=== PATIENT | male | born 1940 | race Two or more races ===

== ENCOUNTER 2017-01-18 04:07 | Day surgery (SDC) | payer MEDICARE ==
[2017-01-12 09:33] LABS: BASOPHILS 0.4 %; BASOPHILS ABSOLUTE 0.02 10/3/uL (0.0-0.16); EOSINOPHILS 4.2 %; EOSINOPHILS ABSOLUTE 0.24 10/3/uL (0.0-0.53); HEMOGLOBIN 12.3 g/dL (13.6-17.8); IMMATURE GRANULOCYTES 0.2 %; IMMATURE GRANULOCYTES ABSOLUTE 0.01 10/3/uL (0.0-0.11); LYMPHOCYTES 32.8 %; LYMPHOCYTES ABSOLUTE 1.87 10/3/uL (0.67-4.30); MEAN CORPUS HGB CONC 33.5 g/dL (32.0-36.0); MEAN CORPUSCULAR HEMOGLOB 29.6 pg (26.0-34.0); MEAN PLATELET VOLUME 10.3 fL (9.2-13.0); MONOCYTES 14.9 %; MONOCYTES ABSOLUTE 0.85 10/3/uL (0.21-1.20); NEUTROPHILS 47.5 %; NEUTROPHILS ABSOLUTE 2.71 10/3/uL (2.02-8.40); PLATELET COUNT 178 10/3/uL (150-400); RBC DISTRIBUTION WIDTH 14.2 % (12.0-16.0); RED CELL COUNT 4.15 10/6/uL (4.7-6.1); WHITE BLOOD CELLS 5.7 10/3/uL (4.5-10.5)
[2017-01-12 09:35] LABS: HEMATOCRIT 36.7 % (40.0-51.0); MANUAL DIFF NO %; MEAN CORPUSCULAR VOLUME 88.4 fL (80-100)
[2017-01-12 09:49] LABS: A/G RATIO 0.9 (0.7-1.9); ALBUMIN 3.4 G/DL (3.5-5.0); ALKALINE PHOSPHATASE 68 U/L (45-117); CHLORIDE, SERUM 105 MMOL/L (96-112); CO2 (CARBON DIOXIDE) 28 MMOL/L (24-34); CREATININE 0.97 MG/DL (0.70-1.30); GFR AFRICAN AMERICAN 87 ML/MIN (>=60); GFR NON AFRICAN AMERICAN 75 ML/MIN (>=60); GLUCOSE, SERUM 99 MG/DL (60-99); POTASSIUM, SERUM 4.4 MMOL/L (3.5-5.3); SGOT(AST) 34 U/L (5-40); SGPT(ALT) 31 U/L (5-65); SODIUM, SERUM 141 MMOL/L (135-148); TOTAL BILIRUBIN 0.4 MG/DL (0-1.2); TOTAL PROTEIN 7.4 G/DL (6.0-8.5)
[2017-01-12 09:51] LABS: BUN (BLOOD UREA NITROGEN) 17 MG/DL (6-23)
--- NOTE | ~2017-01-18 | OP ---
Record Of Operation [facility] [address] [place]. [address] NAME: ZARINA MURDOCK : 38 STATUS : [facility] [place] PAT#: [id number] AGE: 76 ADM/REG DATE : 01/18/17 MR#: [id number] REPORT SERV DATE: 01/18/17 DICTATED BY: ANJUM CASTRO DATE: 01/18/17 REPORT STATUS : Draft TRANSCRIBED BY: MODL DATE: 01/18/17 DATE OF PROCEDURE: 01/18/2017 PREOPERATIVE DIAGNOSIS: Right inguinal hernia. POSTOPERATIVE DIAGNOSIS: Right direct inguinal hernia. PROCEDURE PERFORMED: Right inguinal herniorrhaphy with mesh. SURGEON: Anjum Castro M.D. ANESTHESIA: Local MAC. ESTIMATED BLOOD LOSS: 5 mL. SPECIMENS REMOVED: None. BRIEF HISTORY: Mr. Murdock is a 76-year-old gentleman, who presents with right inguinal protrusion. This has been growing, becoming tender and symptomatic. He presents today for repair. FINDINGS: Mr. Murdock is noted to have a direct inguinal hernia. This was repaired using an extended piece of Ethicon Prolene Hernia System mesh. DETAILS: Following informed consent, the patient was taken to the operating room and placed supine on the OR table. After successful induction of general endotracheal anesthesia, his abdomen was prepped and draped in the usual sterile fashion. An [place] adhesive drape was applied. A right lower quadrant oblique skin incision was made. Dissection was carried through skin, subcutaneous tissue, and Alton fascia using cautery. The external oblique aponeurosis was identified as was the external inguinal ring. The external oblique aponeurosis was then sharply incised and opened in direction of its fibers through the external inguinal ring. Spermatic cord was then identified and encircled with a [place] drain to protect the cord structures. The spermatic cord was carefully inspected. Cremasteric muscles were divided and there was no evidence of an indirect inguinal hernia. In the medial epigastric vessels, there was a large direct inguinal hernia. The transversalis fascia fibers overlying this were incised and the preperitoneal space was entered and developed bluntly with a Ray-Jazmín sponge. The Ray-Jazmín sponge was then removed, and an extended piece of Ethicon Prolene Hernia System mesh was deployed in the preperitoneal space. The anterior onlay portion of the mesh was then opened and secured medially to pubic tubercle using 2-0 Prolene suture. A slit was cut in the mesh to accommodate the spermatic cord, and the slit portion of the mesh was approximated around the spermatic cord using Prolene. The mesh was further fixated on the shelving edge of the ilioinguinal ligament and once the mesh had been properly fixated, we intentionally resected the ilioinguinal nerve to prevent nerve entrapment. The wound was then copiously irrigated. Hemostasis was found to be secure. The external oblique aponeurosis was then reapproximated using a running 2-0 PDS suture. Alton fascia was reapproximated using 3-0 Vicryl. 3-0 Record Of Operation [address] [place]. [address] NAME: ZARINA MURDOCK : 38 STATUS : [facility] [place] PAT#: [id number] AGE: 76 ADM/REG DATE : 01/18/17 MR#: [id number] REPORT SERV DATE: 01/18/17 DICTATED BY: ANJUM CASTRO DATE: 01/18/17 REPORT STATUS : Draft TRANSCRIBED BY: LILIAN DATE: 01/18/17 Vicryl subdermals were applied followed by 4-0 Monocryl subcuticular suture and Dermabond. At the completion of the case, all sponge and needle counts were correct. The patient was extubated and transferred to recovery room in satisfactory condition having suffered no apparent perioperative complications. JAZZY/LILIAN Anjum Castro M.D. / [id number] CC: Meghana Kaiser M.D.
[~2017-01-18 04:07] MED LIST: ALEVE220 MG PO; ASAB PO; COREG6 PO; CRESTOR5 MG PO; DITRO5 PO; ENSURE; HYDROCHLOROT12.5 MG PO; LIPITOR10 PO; LISINOPRIL40 MG PO; MICROZIDE PO; PREV30 PO; PRILO PO; PROSCAR5 PO; SPIRO25 PO; VICODINTAB PO
== END 2017-01-18 15:33 | disposition home or self-care (01) ==
LOC: SDC 04:07
PROVIDERS: Surgery
PROC: 0YU60JZ Supplement Left Inguinal Region with Synthetic Substitute, Open Approach (ICD-10-PCS; principal; 2017-01-18 05:45)
DX: K40.90 Unilateral inguinal hernia, without obstruction or gangrene, not specified as recurrent (principal); I10 Essential (primary) hypertension; E78.5 Hyperlipidemia, unspecified; I25.10 Atherosclerotic heart disease of native coronary artery without angina pectoris; I25.2 Old myocardial infarction; M19.90 Unspecified osteoarthritis, unspecified site; E78.00 Pure hypercholesterolemia, unspecified; E03.9 Hypothyroidism, unspecified; K21.9 Gastro-esophageal reflux disease without esophagitis; D64.9 Anemia, unspecified; Z87.442 Personal history of urinary calculi; Z95.5 Presence of coronary angioplasty implant and graft; Z90.49 Acquired absence of other specified parts of digestive tract; Z98.890 Other specified postprocedural states
CPT/HCPCS: 80053; 85025; 93005; 93288; A9270-GY; J0690; J2405; J3010

== ENCOUNTER 2017-03-09 23:00 | Emergency (ER) | payer MEDICARE ==
[2017-03-09 23:19] LABS: BASOPHILS 0.2 %; BASOPHILS ABSOLUTE 0.01 10/3/uL (0.0-0.16); EOSINOPHILS 4.5 %; EOSINOPHILS ABSOLUTE 0.23 10/3/uL (0.0-0.53); HEMATOCRIT 34.3 % (40.0-51.0); HEMOGLOBIN 11.5 g/dL (13.6-17.8); LYMPHOCYTES ABSOLUTE 2.09 10/3/uL (0.67-4.30); MEAN CORPUS HGB CONC 33.5 g/dL (32.0-36.0); MEAN PLATELET VOLUME 10.4 fL (9.2-13.0); MONOCYTES 17.5 %; MONOCYTES ABSOLUTE 0.89 10/3/uL (0.21-1.20); NEUTROPHILS 36.8 %; NEUTROPHILS ABSOLUTE 1.88 10/3/uL (2.02-8.40); PLATELET COUNT 176 10/3/uL (150-400); RBC DISTRIBUTION WIDTH 16.1 % (12.0-16.0); RED CELL COUNT 4.11 10/6/uL (4.7-6.1); WHITE BLOOD CELLS 5.1 10/3/uL (4.5-10.5)
[2017-03-09 23:21] LABS: MANUAL DIFF NO %; MEAN CORPUSCULAR VOLUME 83.5 fL (80-100)
[2017-03-09 23:29] LABS: INTERNATIONAL NORMAL RATI 1.2 UNITS (-); PROTIME (NOT ORD) 14.6 SEC (12.0-14.5)
[2017-03-09 23:30] LABS: PARTIAL THROMBO TIME 34.8 SEC (22.5-37.2)
[2017-03-09 23:39] LABS: BUN (BLOOD UREA NITROGEN) 19 MG/DL (6-23); CALCIUM, SERUM 8.2 MG/DL (8.5-10.4); CHLORIDE, SERUM 109 MMOL/L (96-112); CO2 (CARBON DIOXIDE) 27 MMOL/L (24-34); CREATININE 0.85 MG/DL (0.70-1.30); GFR AFRICAN AMERICAN 97 ML/MIN (>=60); GFR NON AFRICAN AMERICAN 84 ML/MIN (>=60); GLUCOSE, SERUM 106 MG/DL (60-99); POTASSIUM, SERUM 3.8 MMOL/L (3.5-5.3); SODIUM, SERUM 142 MMOL/L (135-148)
[2017-03-09 23:40] LABS: CHEST PAIN PROFILE TAT 0 Hrs 27 Mins; TROPONIN I 0.08 NG/ML (<0.05)
== END 2017-03-10 02:34 | disposition home or self-care (01) ==
LOC: ER 23:00
PROVIDERS: Specialist
DX: R53.1 Weakness (principal); I25.2 Old myocardial infarction; I10 Essential (primary) hypertension; K21.9 Gastro-esophageal reflux disease without esophagitis; Z87.442 Personal history of urinary calculi; Z95.810 Presence of automatic (implantable) cardiac defibrillator; Z95.5 Presence of coronary angioplasty implant and graft; Z79.82 Long term (current) use of aspirin; Z79.899 Other long term (current) drug therapy
CPT/HCPCS: 71020; 80048; 83735; 84484; 85025; 85610; 85730; 93005; 99284